=== PATIENT | female | born 1990 | race Caucasian/White ===

== ENCOUNTER 2017-04-15 17:55 | Emergency (ER) | payer BC, OTHER ==
--- NOTE | 2017-04-15 20:04 | RAD ---
THREE VIEWS RIGHT ANKLE 04/15/17 HISTORY: Joint pain. COMPARISON: None. FINDINGS: Mild lateral soft tissue swelling. Joint spaces are preserved. No fracture. IMPRESSION: Mild lateral soft tissue swelling. POS: [id number]
== END 2017-04-15 20:17 | disposition home or self-care (01) ==
LOC: ERS 17:55
DX: S93.401A Sprain of unspecified ligament of right ankle, initial encounter (principal); X50.9XXA Other and unspecified overexertion or strenuous movements or postures, initial encounter

== ENCOUNTER 2020-01-30 05:57 | Emergency (ER) | payer BC, SELFPAY ==
[2020-01-30] MEDS ORDERED: Fluorescein Opthalmic Strip ONE (06:05)
[2020-01-30] MEDS ORDERED: Proparacaine 0.5% Opth 15 ML BOT ONE (06:06)
== END 2020-01-30 06:26 | disposition home or self-care (01) ==
LOC: ERS 05:57
DX: S05.01XA Injury of conjunctiva and corneal abrasion without foreign body, right eye, initial encounter (principal); I10 Essential (primary) hypertension; F32.9 Major depressive disorder, single episode, unspecified; Z79.899 Other long term (current) drug therapy; X58.XXXA Exposure to other specified factors, initial encounter
CPT/HCPCS: 99283